=== PATIENT | female | born 1975 | race Two or more races ===

== ENCOUNTER 2023-01-18 05:13 | Inpatient (IN) | payer OTHER ==
[2023-01-18] VITALS (42 sets, daily range): BP systolic 83–111; BP diastolic 49–72; PULSE 53–76; RESP 11–20; TEMP 98.2–98.6; O2SAT 91–100
[~2023-01-18] VITALS: Ht 172.7 cm; Wt 94.7 kg
[2023-01-18] MEDS ORDERED: MORPHINE SULFATE 4 MG/ML SYR/VIAL IV ONE (05:30)
[2023-01-18] MEDS ORDERED: ONDANSETRON HCL 4 MG/2 ML VIAL IV ONE ×2 (05:30→05:45)
[2023-01-18] MEDS ORDERED: fentaNYL CITRATE 100 MCG/2 ML VL IV ONE (05:45)
[2023-01-18] MEDS ORDERED: PANTOPRAZOLE 40 MG/10 ML VIAL INJ IV ONE ×2 (05:45→08:45)
[2023-01-18] MEDS ORDERED: SODIUM CHLORIDE 0.9% 1,000 ML IVB ONE (05:45)
[2023-01-18] MEDS ORDERED: HEPARIN SODIUM (PORCINE) 5000 UNITS/ML 1ML VIAL IV ONE (05:45)
[2023-01-18] MEDS ORDERED: ATORVASTATIN 20 MG TAB PO ONE (05:45)
[2023-01-18] MEDS ORDERED: LORazepam MDV 2MG/ML 50 MG in SODIUM CHL 0.9% 25 ML IV ONE (05:45)
[2023-01-18] MEDS ORDERED: ASPirin 325 MG TAB PO ONE (05:45)
[2023-01-18] MEDS ORDERED: LORazepam 2MG/ML-1ML VIAL IV ONE (06:00)
[2023-01-18] MEDS ORDERED: SODIUM CHLORIDE 0.9% 1,000 ML IV ONE (06:00)
[2023-01-18 06:08] LABS: Basophils # (auto) 0.1 10 ^3/uL (0-0.2); Basophils % (auto) 0.8 % (0.0-2.0); Eosinophils # (auto) 0.2 10 ^3/uL (0-0.8); Eosinophils % (auto) 1.9 % (0.0-7.0); Hematocrit 39.8 % (36.0-46.0); Hemoglobin 13.1 g/dL (12.2-16.2); Lymphocytes # (auto) 2.3 10 ^3/uL (0.4-5.4); Lymphocytes % (auto) 25.9 % (10.0-50.0); Mean Corpuscular Hemoglobin 30.5 pg (28.0-32.0); Mean Corpuscular Volume 92.4 fL (80.0-100.0); Monocytes # (auto) 0.6 10 ^3/uL (0-1.3); Monocytes % (auto) 7.2 % (0.0-12.0); Neutrophils # (auto) 5.6 10 ^3/uL (1.6-8.6); Neutrophils % (auto) 64.2 % (37.0-80.0); Red Blood Cells 4.31 10^6/uL (4.0-5.20); Red Cell Distribution Width 13.7 % (11.8-14.3); White Blood Cell 8.7 10^3/uL (4.4-10.8)
[2023-01-18 06:27] LABS: Alanine Aminotransferase 19 U/L (7-40); Albumin 4.1 g/dL (3.2-4.8); Alkaline Phosphatase 46 U/L (46-116); Anion Gap 8 (5-15); Aspartate Aminotransferase 22 U/L (13-40); BUN/Creatinine Ratio 15.7 (10.0-20.0); Blood Alcohol < 3.0 mg/dL (<10); Blood Urea Nitrogen 13 mg/dL (9-23); Calcium 9.3 mg/dL (8.5-10.1); Carbon Dioxide 26 mmol/L (20-30); Chloride 105 mmol/L (98-107); Cholesterol 151 mg/dL (< 200); Glucose 105 mg/dL (74-106); HDL Cholesterol 47 mg/dL (40-59); LDL Cholesterol 100 mg/dL (< 100); Sodium 139 mmol/L (136-145); Triglycerides 80 mg/dL (< 150)
[2023-01-18 06:28] LABS: Bilirubin, Total 0.5 mg/dL (0.2-1.0); Total Protein 6.4 g/dL (5.7-8.2)
[2023-01-18 06:42] LABS: INR 0.99 (0.9-1.15); Prothrombin Time 10.4 sec (9.3-11.8)
[2023-01-18 06:46] LABS: Lipase 36 U/L (12-53); Magnesium 1.7 mg/dL (1.6-2.6)
[2023-01-18 07:06] LABS: Urine Bacteria FEW /hpf (None Seen); Urine Blood Negative /uL (Negative); Urine Clarity Clear (Clear); Urine Mucus FEW (None Seen); Urine Protein, UAD TRACE (Negative); Urine Specific Gravity 1.012 (1.001-1.035); Urine Urobilinogen Normal (Negative); Urine WBC 2 /hpf (0 - 5); Urine pH 6.5 (5.0-8.0)
[2023-01-18 07:08] LABS: Urine Color Straw (Yellow)
[2023-01-18] MEDS: SODIUM CHLOR 0.9% PF (SALINE LOCK) 10ML VIAL/SYR IV SCH ×3 (07:29→21:19)
[2023-01-18 08:03] LABS: Amphetamine Screen, Urine Neg (NEGATIVE); Barbiturate Scree,Urine Neg (NEGATIVE); Benzodiazephine Screen, Urine Neg (NEGATIVE); Cannabinoid Screen, Urine Neg (NEGATIVE); Cocaine Screen, Urine Neg (NEGATIVE); Opiate Scree,Urine Neg (NEGATIVE); Phencyclidine Screen, Urine Neg (NEGATIVE)
[2023-01-18] MEDS ORDERED: NITROGLYCERIN 0.4 MG SL TAB SL PRN (08:45)
[2023-01-18] MEDS ORDERED: ONDANSETRON HCL 4 MG/2 ML VIAL IV PRN (08:45)
[2023-01-18] MEDS ORDERED: IBUP-1455 PO (08:49)
[2023-01-18] MEDS ORDERED: ALBU108A5 INH (08:49)
[2023-01-18] MEDS ORDERED: METF-1145 PO (08:49)
[2023-01-18] MEDS: SODIUM CHLORIDE 0.9% 1,000 ML IV SCH ×2 (09:02→17:05)
[2023-01-18 09:25] LABS: Triglycerides 79 mg/dL (< 150)
[2023-01-18 09:26] LABS: LDL Cholesterol 98 mg/dL (< 100)
[2023-01-18] MEDS: MORPHINE SULFATE INJ 2 MG/ml SYRG IV PRN ×4 (09:26→23:15)
[2023-01-18 09:27] LABS: Cholesterol 150 mg/dL (< 200); HDL Cholesterol 45 mg/dL (40-59)
[2023-01-18] MEDS ORDERED: LIDOCAINE 2%HCL (LOCAL ANESTH.) INJ 20ML MDV ONE (09:36)
[2023-01-18] MEDS ORDERED: IODIXANOL 320MG/ML 100ML BTL IV ONE ×3 (09:36→11:30)
[2023-01-18] MEDS ORDERED: HEPARIN SODIUM (PORCINE) 5000 UNITS/ML 1ML VIAL ONE (09:38)
[2023-01-18] MEDS ORDERED: ANGIOMAX 250 MG VIAL IV ONE ×2 (09:38→10:54)
[2023-01-18] MEDS ORDERED: fentaNYL CITRATE 100 MCG/2 ML VL ONE (09:38)
[2023-01-18] MEDS ORDERED: VERAPAMIL 2.5MG/ML INJ 2ML VIAL IV ONE (09:38)
[2023-01-18] MEDS ORDERED: MIDAZOLAM HCL 2MG/2ML 2ml VIAL (1mg/ml) ONE (09:39)
[2023-01-18] MEDS ORDERED: SODIUM CHL 0.9% 50 ML ONE ×2 (09:39→10:54)
[2023-01-18] MEDS ORDERED: EPINEPHrine HCL 1 MG/10 ML SYRG ONE (10:27)
[2023-01-18] MEDS ORDERED: ATROPINE SULF 1 MG/10ml SYR ONE (10:27)
[2023-01-18] MEDS ORDERED: NOREPINEPHRINE 8 MG/250ML KIT 250 ML IV ONE (10:29)
[2023-01-18] MEDS ORDERED: EPTIFIBATIDE INJ (2MG/ML) 10ML VIAL IV ONE ×2 (10:44→11:09)
[2023-01-18] MEDS ORDERED: EPTIFIBATIDE DRIP(0.75MG/ML) 100 ML IV ONE (11:28)
[2023-01-18] MEDS ORDERED: TICAGRELOR 90 MG TAB ONE (11:35)
[2023-01-18] MEDS ORDERED: ASPirin 81 mg TAB ONE (11:35)
[2023-01-18] MEDS ORDERED: ONDANSETRON HCL 4 MG/2 ML VIAL ONE (11:49)
[2023-01-18] MEDS: EPTIFIBATIDE DRIP(0.75MG/ML) 100 ML IV SCH ×3 (11:50→22:51)
[2023-01-18] MEDS: NOREPINEPHRINE 8 MG/250ML KIT 250 ML IV SCH (11:50)
[2023-01-18] MEDS ORDERED: EPTIFIBATIDE DRIP(0.75MG/ML) 100 ML IV SCH (12:00)
[2023-01-18] MEDS ORDERED: METO25TA36 PO (15:08)
[2023-01-18] MEDS ORDERED: LISI2.5T47 PO (15:08)
[2023-01-18] MEDS: ATORVASTATIN 20 MG TAB PO SCH (21:19)
[2023-01-18] MEDS: TICAGRELOR 90 MG TAB PO SCH (21:19)
[2023-01-19] VITALS (60 sets, daily range): BP systolic 86–132; BP diastolic 46–96; PULSE 55–80; RESP 12–22; TEMP 98.4–98.9; O2SAT 86–100
[2023-01-19] MEDS: SODIUM CHLORIDE 0.9% 1,000 ML IV SCH ×4 (00:09→22:09)
[2023-01-19 04:28] LABS: Basophils # (auto) 0 10 ^3/uL (0-0.2); Basophils % (auto) 0.3 % (0.0-2.0); Eosinophils # (auto) 0 10 ^3/uL (0-0.8); Eosinophils % (auto) 0.3 % (0.0-7.0); Hematocrit 34.6 % (36.0-46.0); Hemoglobin 11.3 g/dL (12.2-16.2); Lymphocytes # (auto) 2.3 10 ^3/uL (0.4-5.4); Mean Corpuscular Hemoglobin 30.9 pg (28.0-32.0); Mean Corpuscular Hgb Conc. 32.6 g/dL (32.0-36.0); Mean Corpuscular Volume 94.8 fL (80.0-100.0); Monocytes # (auto) 0.9 10 ^3/uL (0-1.3); Monocytes % (auto) 8.2 % (0.0-12.0); Neutrophils # (auto) 7.2 10 ^3/uL (1.6-8.6); Neutrophils % (auto) 69.2 % (37.0-80.0); Red Blood Cells 3.65 10^6/uL (4.0-5.20); Red Cell Distribution Width 13.9 % (11.8-14.3); White Blood Cell 10.5 10^3/uL (4.4-10.8)
[2023-01-19 04:49] LABS: Alanine Aminotransferase 43 U/L (7-40); Albumin 3.5 g/dL (3.2-4.8); Alkaline Phosphatase 37 U/L (46-116); Anion Gap 4 (5-15); Aspartate Aminotransferase 253 U/L (13-40); BUN/Creatinine Ratio 9.4 (10.0-20.0); Blood Urea Nitrogen 6 mg/dL (9-23); Calcium 7.9 mg/dL (8.7-10.4); Carbon Dioxide 28 mmol/L (20-30); Chloride 106 mmol/L (98-107); Glucose 108 mg/dL (74-106); Potassium 3.7 mmol/L (3.5-5.1); Sodium 138 mmol/L (136-145)
[2023-01-19 04:50] LABS: Bilirubin, Total 0.8 mg/dL (0.2-1.0)
[2023-01-19] MEDS: SODIUM CHLOR 0.9% PF (SALINE LOCK) 10ML VIAL/SYR IV SCH ×3 (06:16→22:11)
[2023-01-19] MEDS: PANTOPRAZOLE 40 MG/10 ML VIAL INJ IV SCH (09:07)
[2023-01-19] MEDS: TICAGRELOR 90 MG TAB PO SCH ×2 (09:07→22:10)
[2023-01-19] MEDS: ASPirin 81 mg TAB PO SCH (09:07)
[2023-01-19] MEDS: NOREPINEPHRINE 8 MG/250ML KIT 250 ML IV SCH (13:45)
[2023-01-19] MEDS ORDERED: ACETAMINOPHEN 325 MG TAB PO PRN (16:00)
[2023-01-19] MEDS: ATORVASTATIN 20 MG TAB PO SCH (22:10)
[2023-01-20] MEDS: SODIUM CHLOR 0.9% PF (SALINE LOCK) 10ML VIAL/SYR IV SCH (06:18)
[2023-01-20 07:12] LABS: Alanine Aminotransferase 39 U/L (7-40); Albumin 3.6 g/dL (3.2-4.8); Alkaline Phosphatase 40 U/L (46-116); Anion Gap 6 (5-15); Aspartate Aminotransferase 130 U/L (13-40); BUN/Creatinine Ratio 10.5 (10.0-20.0); Blood Urea Nitrogen 6 mg/dL (9-23); Calcium 8.5 mg/dL (8.5-10.1); Carbon Dioxide 26 mmol/L (20-30); Chloride 110 mmol/L (98-107); Glucose 89 mg/dL (74-106); Potassium 3.8 mmol/L (3.5-5.1); Sodium 142 mmol/L (136-145)
[2023-01-20 07:13] LABS: Bilirubin, Total 0.5 mg/dL (0.2-1.0)
[2023-01-20 07:19] LABS: Basophils # (auto) 0 10 ^3/uL (0-0.2); Basophils % (auto) 0.5 % (0.0-2.0); Eosinophils # (auto) 0.1 10 ^3/uL (0-0.8); Hematocrit 32.4 % (36.0-46.0); Hemoglobin 10.6 g/dL (12.2-16.2); Lymphocytes # (auto) 1.8 10 ^3/uL (0.4-5.4); Lymphocytes % (auto) 21.9 % (10.0-50.0); Mean Corpuscular Hemoglobin 30.8 pg (28.0-32.0); Mean Corpuscular Hgb Conc. 32.9 g/dL (32.0-36.0); Mean Corpuscular Volume 93.6 fL (80.0-100.0); Monocytes # (auto) 0.6 10 ^3/uL (0-1.3); Monocytes % (auto) 7.4 % (0.0-12.0); Neutrophils # (auto) 5.6 10 ^3/uL (1.6-8.6); Neutrophils % (auto) 69.2 % (37.0-80.0); Red Blood Cells 3.46 10^6/uL (4.0-5.20); Red Cell Distribution Width 13.7 % (11.8-14.3); White Blood Cell 8.2 10^3/uL (4.4-10.8)
[2023-01-20 08:00] VITALS: PULSE 70
[2023-01-20 09:00] VITALS: BP 103/65; PULSE 96; RESP 18; TEMP 98.3; O2SAT 97
[2023-01-20] MEDS: ASPirin 81 mg TAB PO SCH (10:00)
[2023-01-20] MEDS: PANTOPRAZOLE 40 MG/10 ML VIAL INJ IV SCH (10:00)
[2023-01-20] MEDS: TICAGRELOR 90 MG TAB PO SCH (10:01)
[2023-01-20 13:00] VITALS: BP 97/51; PULSE 76; RESP 16; TEMP 98.6; O2SAT 98
[2023-01-20] MEDS ORDERED: ATOR20TA50 PO (13:45)
[2023-01-20] MEDS ORDERED: ASPI-325 PO (13:45)
[2023-01-20] MEDS ORDERED: TICA90TA PO (13:45)
== END 2023-01-20 15:40 | disposition home or self-care (01) | DRG 270 ==
LOC: EDBD 05:13 → ER 05:13 → TELE 08:48 → ICU WEST 12:02 → TELE-CENTR 01-19 21:20
PROVIDERS: ADMIT Nurse Practitioner Family; ATTEND Internal Medicine
PROC: 027034Z Dilation of Coronary Artery, One Artery with Drug-eluting Intraluminal Device, Percutaneous Approach (ICD-10-PCS; principal; 2023-01-18)
PROC: X2CY3T7 Extirpation of Matter from Great Vessel using Computer-aided Mechanical Aspiration, Percutaneous Approach, New Technology Group 7 (ICD-10-PCS; 2023-01-18)
PROC: B211YZZ Fluoroscopy of Multiple Coronary Arteries using Other Contrast (ICD-10-PCS; 2023-01-18)
DX: I21.4 Non-ST elevation (NSTEMI) myocardial infarction (principal); R57.0 Cardiogenic shock; I50.40 Unspecified combined systolic (congestive) and diastolic (congestive) heart failure; E66.01 Morbid (severe) obesity due to excess calories; I11.0 Hypertensive heart disease with heart failure; I95.9 Hypotension, unspecified; R74.01 Elevation of levels of liver transaminase levels; I25.10 Atherosclerotic heart disease of native coronary artery without angina pectoris; Z79.82 Long term (current) use of aspirin; Z79.899 Other long term (current) drug therapy; Z90.49 Acquired absence of other specified parts of digestive tract; Z71.3 Dietary counseling and surveillance; Z68.31 Body mass index [BMI] 31.0-31.9, adult
CPT/HCPCS: 36415; 71045; 71275; 80053; 80061; 80307; 80320; 81001; 83036; 83690; 83735; 83880; 84443; 84484; 84702; 85025; 85379; 85610; 85730; 87081; 93005; 93306; 96361; 96374; 96375; 99152; 99291; C9113; G0378; J2250; J2405; Q9967

== ENCOUNTER 2024-08-21 21:49 | Emergency (ER) | payer OTHER ==
[~2024-08-21] VITALS: Ht 172.7 cm; Wt 94.0 kg
[~2024-08-21 21:49] MED LIST: ASPI-325 PO; ATOR20TA50 PO; LISI2.5T47 PO; METO25TA36 PO; TICA90TA PO
[2024-08-21 22:11] VITALS: TEMP 97.7
[2024-08-21 22:55] LABS: Hematocrit 38.8 % (36.0-46.0); Hemoglobin 13.4 g/dL (12.2-16.2); Mean Corpuscular Hemoglobin 31.2 pg (28.0-32.0); Mean Corpuscular Volume 90.6 fL (80.0-100.0); Nucleated Red Blood Cells % 0.1 %
[2024-08-21 23:07] LABS: INR 0.94 (0.9-1.15); Prothrombin Time 10.0 sec (9.3-11.8)
[2024-08-21] MEDS ORDERED: ACET650T12 PO (23:49)
[2024-08-21] MEDS ORDERED: HYDR-4902 PO (23:49)
--- NOTE | 2024-08-21 23:55 | ED.PDOC ---
Epistaxis- HPI HPI Comments 49-year-old female who presents with chief complaint of epistaxis. Patient reports unprovoked onset of multiple epistaxis episodes since yesterday. She had 2 episodes, yesterday, and 1, this morning, that resolved on her own. Most recent episode is reported to have started at 2030, this evening. Bleeding is stated to emanate from both nares. Significant history of CHF, HTN, [place] status post angio/stent, right coronary artery aneurysm, transaminitis, and cholecystectomy. Medications: Eliquis, Brilinta, aspirin, lisinopril, and metoprolol. Denies any lightheadedness, dizziness, weakness, or further associated symptoms. Chief Complaint: Nose Bleed Time Seen by MD: 22:17 Reviewed Notes: Nurses Notes, Medications, Allergies Allergies: Coded Allergies: NO KNOWN ALLERGIES (Unverified , 01/18/23) Home Meds Active Scripts Acetaminophen (Acetaminophen Er) 650 Mg Tab, 650 MG PO TIDPRN PRN for 3 Days, #9 TAB Prov:JENNIFER MATA MD 08/21/24 Hydrocodone-Acetaminophen (Hydrocodone Bitartrate/AC 5-325 mg) 1 Tab Tab, 1 TAB PO TIDPRN PRN for 2 Days, #6 TAB Prov:JENNIFER MATA MD 08/21/24 Ticagrelor Base (BRILINTA) 90 Mg Tab, 90 MG PO BID for 30 Days, #60 TAB 3 Refills Prov:ANGELICA BARRIOS MD 01/20/23 Atorvastatin Calcium (ATORVASTATIN CALCIUM) 20 Mg Tab, 40 MG PO HS for 30 Days, #30 TAB 3 Refills Prov:ANGELICA BARRIOS MD 01/20/23 Aspirin (Aspirin Low Dose) 81 Mg Tab, 81 MG PO DAILY for 30 Days, #30 TAB 3 Refills Prov:ANGELICA BARRIOS MD 01/20/23 Reported Medications Metoprolol Succinate (Toprol Xl) 25 Mg Tab, PO, TAB 01/18/23 Lisinopril (Lisinopril) 2.5 Mg Tab, PO DAILY for 30 Days, MG 01/18/23 Information Source: Patient Mode of Arrival: Ambulatory Severity: Bleeding Uncontrolled Timing: Hours Vital Signs Vital Signs Date Time Temp Pulse Resp B/P (MAP) Pulse Ox O2 Delivery O2 Flow Rate FiO2 08/22/24 00:10 67 18 154/88 (110) 97 08/22/24 00:10 Room Air* 0 21 08/21/24 22:11 97.7 97.7 Physical Exam General: Awake, alert and oriented. No acute distress. Skin: Skin in warm, dry and intact without rashes or lesions. HEENT: No posterior pharyngeal bleeding. No septal hematoma. Bleeding emanating from left nare. The head is normocephalic and atraumatic. Conjunctivae are clear without exudates or hemorrhage. Sclera is non-icteric. Neck: Normal range of motion. No JVD. Cardiac: Regular rate Respiratory: No signs of respiratory distress. No Stridor. Extremities: Upper and lower extremities are atraumatic in appearance without deformity. Neurological: The patient is awake, alert and oriented to person, place, and time with normal speech. Speech is clear. There is no facial asymmetry. Psychiatric: Appropriate mood and affect. Good judgement and insight. Review of Systems: REVIEW OF SYSTEMS: No fever, no chills, HEENT: Epistaxis. No neck pain, no blurred vision Cardiac: No chest pain. No palpitations. 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 Was a procedure done?: Yes Sedation Sedation?: No Nasal Cautery and Pack Indicaton: Anterior epitaxis Silver nitrate: Left Hemostasis: Was obtained Location of packing: Left Packing: Inflatable balloon Informed consent obtained: Yes Risks/benefits/alt described: Yes Differential Diagnosis (NSB) Differential Diagnosis: Anterior Nasal Bleed, Posterior Nasal Bleed, Coagulopathy, Other (Anemia) X-Ray, Labs, Meds, VS Vital Signs Date Time Temp Pulse Resp B/P (MAP) Pulse Ox O2 Delivery O2 Flow Rate FiO2 08/22/24 00:10 67 18 154/88 (110) 97 08/22/24 00:10 Room Air* 0 21 08/21/24 22:11 97.7 71 18 122/93 (103) 98 97.7 Lab Test 08/21/24 22:36 Range/Units White Blood Count 7.4 4.4-10.8 10^3/uL Red Blood Count 4.29 4.0-5.20 10^6/uL Hemoglobin 13.4 12.2-16.2 g/dL Hematocrit 38.8 36.0-46.0 % Mean Corpuscular Volume 90.6 80.0-100.0 fL Mean Corpuscular Hemoglobin 31.2 28.0-32.0 pg Mean Corpuscular Hemoglobin Concent 34.5 32.0-36.0 g/dL Red Cell Distribution Width 13.9 11.8-14.3 % Platelet Count 302 140-450 10^3/uL Mean Platelet Volume 8.3 6.9-10.8 fL Neutrophils (%) (Auto) 56.3 37.0-80.0 % Lymphocytes (%) (Auto) 33.0 10.0-50.0 % Monocytes (%) (Auto) 6.8 0.0-12.0 % Eosinophils (%) (Auto) 2.7 0.0-7.0 % Basophils (%) (Auto) 1.2 0.0-2.0 % Neutrophils # (Auto) 4.2 1.6-8.6 10 ^3/uL Lymphocytes # (Auto) 2.4 0.4-5.4 10 ^3/uL Monocytes # (Auto) 0.5 0-1.3 10 ^3/uL Eosinophils # (Auto) 0.2 0-0.8 10 ^3/uL Basophils # (Auto) 0.1 0-0.2 10 ^3/uL Nucleated Red Blood Cells 0.1 % Prothrombin Time 10.0 9.3-11.8 sec Prothrombin Time INR 0.94 0.9-1.15 Current Medications Medications (Trade) Dose Ordered Sig/Monik Route Start Time Stop Time Status Last Admin Tramadol HCl (Ultram) 50 mg ONCE ONCE PO 08/22/24 00:00 08/22/24 00:01 DC 08/22/24 00:06 Acetaminophen (Tylenol Tablet Or Capsule) 1,000 mg ONCE ONCE PO 08/22/24 00:00 08/22/24 00:01 DC 08/22/24 00:06 Time of 1ST Reevaluation: 22:47 Reevaluation 1ST: Unchanged Patient Education/Counseling: Treatment, Need For Follow Up Family Education/Counseling: No Family Present Departure 1 Departure Time of Disposition: 23:55 Impression: Primary Impression: Epistaxis Disposition: 01 HOME / SELF CARE / HOMELESS Condition: Stable Additional Instructions: ED DISCHARGE INSTRUCTIONS Instructions: Please read all instructions provided in this packet carefully. Although you have been discharged from the Emergency Department, this does not mean that you have a "clean bill of health". No definitive diagnosis for your symptoms has been made today. It is possible that you are in the process of developing a serious illness. This is why you must return to the ED without fail if any new or worsening symptoms (especially if your symptoms include chest pain, trouble breathing, abdominal pain, fever, headache, confusion, trouble seeing, or trouble walking) Return to the emergency department in 24 hours to have rhino rocket checked and removed. If you are unable to get an appointment, return to the ED for re-evaluation. Patient Discharge Instructions: Be sure to take all antibiotic pills or drops if prescribed by your doctor as directed. You may feel pressure and discomfort after the placement of the RAPID RHINO pack. If your pain level increases even after taking any medications recommended by your physician seek care immediately. It is recommended that you do not pull on or attempt to adjust the RAPID RHINO pack while it is placed. In order to ensure optimal results blowing your nose is not recommended. You should avoid breathing in tobacco smoke or cleaning products as they may irritate your nose. If possible, stay in humid environments or use saline nasal sprays to keep your nose moist, allow it to heal, and help with congestion in the non-bleeding side. You may wish to ask your doctor the following questions: What medications and nasal sprays should I take? Do I have an anterior or posterior nosebleed and what is the difference? What should I do if the bleeding continues at home? If you experience any of the issues below seek medical care immediately Your nose continues to bleed after being discharged from the site of care (experienced as coughing up blood from the back of your throat) The RAPID RHINO pack becomes loose and migrates in or out of your nose. You feel weak or dizzy You have trouble breathing You experience trouble standing up Your pain level increases You develop a fever You begin vomiting You have concerns about your condition or questions about your treatment Note: If you experience another nose bleed event seek care immediately. Prior to reaching a site of care tilt your head forward and apply pleasure to the front of your nose using two fingers while breathing through your mouth. You will want to apply pressure across the bridge of your nose in such a fashion as to close off both of your nostrils. In the event that blood travels down your throat into your stomach it may stimulate nausea and vomiting. Discharge Information RAPID RHINO With [employer]. 2016 [employer]. All rights reserved. P/N [address] Rev. A 12/31 [employer] e-Prescriptions Acetaminophen (Acetaminophen Er) 650 Mg Tab 650 MG PO TIDPRN PRN for 3 Days, #9 TAB Prov: JENNIFER MATA MD 08/21/24 Hydrocodone-Acetaminophen (Hydrocodone Bitartrate/AC 5-325 mg) 1 Tab Tab 1 TAB PO TIDPRN PRN for 2 Days, #6 TAB Prov: JENNIFER MATA MD 08/21/24 Comments 49-year-old female on anticoagulation presented with epistaxis from the left naris. Patient preserved observed in the ED with pressure held for over 1 hour. Patient continued to have epistaxis from the neck near. Discuss further options for treatment with the patient including topical treatment, cauterization, packing. Rhino rocket was placed in the left naris. Epistaxis resolved. No further bleeding Patient advised to return to the emergency department within 24 hours for re-evaluation Extensive evaluation was performed in attempt to identify or rule out: (See differential diagnosis section) The following tests were ordered, and results were reviewed by me and discussed with patient: (See diagnostic results section) The following test were independently interpreted by me: N/A I reviewed and agreed with the following test results read by other providers: N/A I reviewed the following notes from the pt's past medical encounters: January 18, 2023 encounter for chest pain Additional information was gathered from interviewing the following independent historians: N/A Discussion of management or test interpretation with external physician/other qualified health ostomy care nurse: N/A An acute or chronic illness that poses a threat to life or bodily function: Prolonged epistaxis on anticoagulation Decision regarding hospitalization or escalation of hospital level of care: Risks and benefits of admission for further treatment of patient's condition was considered however due to patient's stable condition patient will be discharged to follow up closely or return to care for worsening of condition or inability to follow up. Critical Care Note Critical Care Time?: No Stability Stability form required: No Heart Score Heart Score: Heart Score Response (Comments) Value History N/A 0 EKG N/A 0 Age N/A 0 Risk Factors N/A 0 Troponin N/A 0 Total 0 I personally scribed for JENNIFER MATA MD ([email or web address]) on 08/22/24 at 00:58. Electronically submitted by Ten Pugh ([email or web address]). JENNIFER MATA MD Aug 21, 2024 23:55
[2024-08-22] MEDS: ACETAMINOPHEN 500 MG TAB or CAP PO ONE (00:06)
[2024-08-22 00:10] VITALS: BP 154/88; PULSE 67; RESP 18; O2SAT 97
== END 2024-08-21 23:59 | disposition home or self-care (01) ==
LOC: ER 21:49
DX: R04.0 Epistaxis (principal); I11.0 Hypertensive heart disease with heart failure; I50.9 Heart failure, unspecified; I25.2 Old myocardial infarction; Z90.49 Acquired absence of other specified parts of digestive tract; Z79.899 Other long term (current) drug therapy
CPT/HCPCS: 30901; 36415; 85025; 85610

== ENCOUNTER 2024-08-22 21:48 | Emergency (ER) | payer OTHER ==
[~2024-08-22] VITALS: Ht 172.7 cm; Wt 90.9 kg
[~2024-08-22 21:48] MED LIST changes: +ACET650T12 PO; +HYDR-4902 PO
[2024-08-22] MEDS: OXYMETAZOLINE HCL 0.05 % NASAL SPRAY 15ML ONE (22:58)
[2024-08-22] MEDS: Surgicel PA 2X3 INCH TOP ONE (22:59)
[2024-08-22] MEDS: LIDOCAINE W/ EPINEPHRINE 2% INJ 20ML VIAL ID ONE (22:59)
--- NOTE | 2024-08-22 23:31 | ED.PDOC ---
History of Present Illness HPI Comments 49-year-old female who is returning to ED for rhino rocket removal. Patient was seen yesterday for epistaxis, which she had 1 rhino rocket balloon placed in her left naris. At since then she has had no further bleeding after being discharge. She denies having any symptoms at this time. Chief Complaint: Nose Bleed Time Seen by MD: 22:40 Reviewed Notes: Nurses Notes, Medications, Allergies Allergies: Coded Allergies: NO KNOWN ALLERGIES (Unverified , 01/18/23) Home Meds Active Scripts Acetaminophen (Acetaminophen Er) 650 Mg Tab, 650 MG PO TIDPRN PRN for 3 Days, #9 TAB Prov:JENNIFER MATA MD 08/21/24 Hydrocodone-Acetaminophen (Hydrocodone Bitartrate/AC 5-325 mg) 1 Tab Tab, 1 TAB PO TIDPRN PRN for 2 Days, #6 TAB Prov:JENNIFER MATA MD 08/21/24 Ticagrelor Base (BRILINTA) 90 Mg Tab, 90 MG PO BID for 30 Days, #60 TAB 3 Refills Prov:ANGELICA BARRIOS MD 01/20/23 Atorvastatin Calcium (ATORVASTATIN CALCIUM) 20 Mg Tab, 40 MG PO HS for 30 Days, #30 TAB 3 Refills Prov:ANGELICA BARRIOS MD 01/20/23 Aspirin (Aspirin Low Dose) 81 Mg Tab, 81 MG PO DAILY for 30 Days, #30 TAB 3 Refills Prov:ANGELICA BARRIOS MD 01/20/23 Reported Medications Metoprolol Succinate (Toprol Xl) 25 Mg Tab, PO, TAB 01/18/23 Lisinopril (Lisinopril) 2.5 Mg Tab, PO DAILY for 30 Days, MG 01/18/23 Information Source: Patient Mode of Arrival: Ambulatory Severity: None Prehospital treatment: Other (See previous visit) Review of Systems: REVIEW OF SYSTEMS: No fever, no chills, HEENT: No neck pain, no blurred vision Cardiac: No chest pain. No palpitations. Lungs: No shortness of breath, GI: No abdominal pain, no vomiting Musculoskeletal: No joint pain , no back pain Skin: No rash, no wound Neuro: No headache, no dizziness, no syncope Vital Signs Vital Signs Date Time Temp Pulse Resp B/P (MAP) Pulse Ox O2 Delivery O2 Flow Rate FiO2 08/23/24 00:12 Room Air* 0 21 08/23/24 00:11 98.4 68 14 112/86 (95) 95 98.4 Physical Exam General: Awake, alert and oriented. No acute distress. Skin: Skin in warm, dry and intact without rashes or lesions. HEENT: The head is normocephalic and atraumatic. Conjunctivae are clear without exudates or hemorrhage. Sclera is non-icteric. Rhino rocket removed, patient observed with continued epistaxis from left nare. No septal hematoma. No bleeding from Kiesselbach's plexus Neck: Normal range of motion. No JVD. Cardiac: Regular rate Respiratory: No signs of respiratory distress. No Stridor. Extremities: Upper and lower extremities are atraumatic in appearance without deformity. Neurological: The patient is awake, alert and oriented to person, place, and time with normal speech. Speech is clear. There is no facial asymmetry. Psychiatric: Appropriate mood and affect. Good judgement and insight. Past Medical History PAST MEDICAL HISTORY: CHF, HTN, [place] Past Medical History (Other): Transaminitis Right coronary artery aneurysm Obesity Surgical History: Cholecystectomy, PTCA Surgical History (Other): Angiogram GENERATOR MAN History: Denies all GENERATOR MAN Hx Family History Family History: Reviewed,noncontributory to illness Social History Smoker: Non-Smoker Alcohol: Denies ETOH Use Drugs: Denies Drug Use Lives In: Home Was a procedure done? Was a procedure done?: No Differential Dx Considerations may include: Rhino rocket removal X-Ray, Labs, Meds, VS Vital Signs Date Time Temp Pulse Resp B/P (MAP) Pulse Ox O2 Delivery O2 Flow Rate FiO2 08/23/24 00:12 Room Air* 0 21 08/23/24 00:11 98.4 68 14 112/86 (95) 95 98.4 08/22/24 22:06 98.7 73 14 147/91 (109) 95 98.7 Current Medications Medications (Trade) Dose Ordered Sig/Monik Route Start Time Stop Time Status Last Admin Lidocaine/ Epinephrine (Lidocaine/ Epinephrine 2% Inj) ONCE ONCE ID 08/22/24 22:45 08/22/24 22:50 DC 08/22/24 22:59 Oxymetazoline HCl (Afrin) 1 spr STAT ONCE NA 08/22/24 22:45 08/22/24 22:50 DC 08/22/24 22:58 Time of 1ST Reevaluation: 23:10 Reevaluation 1ST: Unchanged Patient Education/Counseling: Treatment, Need For Follow Up Family Education/Counseling: No Family Present SEPSIS Sepsis Screen Date sepsis recognized/suspect: Aug 22, 2024 Time Sepsis recognized/suspect: 2154 Recent Procedure: No On Antibiotic Therapy: No Respiratory Rate >20: No Heart Rate >90: No Temp<36 C (96.8 F) or >38.3 C: No SBP <90 or MAP <65 mmHG: No New Acute Mental Status Change: No Is the patient on CPAP, BIPAP,: No Vital Signs Date Time Temp Pulse Resp B/P (MAP) Pulse Ox O2 Delivery O2 Flow Rate FiO2 08/23/24 00:12 Room Air* 0 21 08/23/24 00:11 98.4 68 14 112/86 (95) 95 98.4 08/22/24 22:06 98.7 73 14 147/91 (109) 95 98.7 Departure 1 Departure Time of Disposition: 00:06 Impression: Primary Impression: Epistaxis Disposition: HOME / SELF CARE / HOMELESS Condition: Stable Additional Instructions: ED DISCHARGE INSTRUCTIONS Instructions: Please read all instructions provided in this packet carefully. Although you have been discharged from the Emergency Department, this does not mean that you have a "clean bill of health". No definitive diagnosis for your symptoms has been made today. It is possible that you are in the process of developing a serious illness. This is why you must return to the ED without fail if any new or worsening symptoms (especially if your symptoms include chest pain, trouble breathing, abdominal pain, fever, headache, confusion, trouble seeing, or trouble walking) It is also very important that you see a primary care doctor within the next 1-3 days to follow up. You will need referral to see a ENT specialist. If you are unable to get an appointment, return to the ED for re-evaluation. Discharged With: Self Comments 49-year-old female with ongoing left ear epistaxis. Bleeding resolved after Afrin, lidocaine with epinephrine, silver nitrate in the ED. patient felt stable for discharge home. She follow up with the primary care provider for ENT referral. She has spoken to her tool design drafter's who is holding her anticoagulation at this time. 08/23/2024 20:05: Spoke with patient via telephone. At this time she states epistaxis has resolved. She will follow up with the primary care provider Extensive evaluation was performed in attempt to identify or rule out: (See differential diagnosis section) The following tests were ordered, and results were reviewed by me and discussed with patient: (See diagnostic results section) The following test were independently interpreted by me: N/A I reviewed and agreed with the following test results read by other providers: N/A I reviewed the following notes from the pt's past medical encounters: January 18, 2023 and August 21, 2024 encounters for chest pain and nosebleed, respectively. Additional information was gathered from interviewing the following independent historians: N/A Discussion of management or test interpretation with external physician/other qualified health critical care transport nurse: N/A Addressed an acute or chronic illness that poses a threat to life or bodily function: Epistaxis in patient on anticoagulation Decision regarding hospitalization or escalation of hospital level of care: Risks and benefits of admission for further treatment of patient's condition was considered however due to patient's stable condition patient will be discharged to follow up closely or return to care for worsening of condition or inability to follow up. Critical Care Note Critical Care Time?: No Stability Stability form required: No Heart Score Heart Score: Heart Score Response (Comments) Value History N/A 0 EKG N/A 0 Age N/A 0 Risk Factors N/A 0 Troponin N/A 0 Total 0 I personally scribed for JENNIFER MATA MD ([email or web address]) on 08/22/24 at 23:31. Electronically submitted by Ten Pugh [email or web address]). JENNIFER MATA MD Aug 22, 2024 23:31
[2024-08-23 00:11] VITALS: BP 112/86; PULSE 68; RESP 14; TEMP 98.4; O2SAT 95
== END 2024-08-23 00:15 | disposition home or self-care (01) ==
LOC: ER 21:48
DX: R04.0 Epistaxis (principal); I11.0 Hypertensive heart disease with heart failure; I50.9 Heart failure, unspecified; Z90.49 Acquired absence of other specified parts of digestive tract; Z79.899 Other long term (current) drug therapy
CPT/HCPCS: 30901